=== PATIENT | female | born 1985 ===

== ENCOUNTER 2023-02-20 06:37 | Inpatient (IN) | payer OTHER ==
[~2023-02-20] VITALS: Ht 175.3 cm; Wt 2.7 kg
[2023-02-20] MEDS ORDERED: PRENATAL TABLE1 EAC4 PO (08:30)
[2023-02-20] MEDS ORDERED: IRON325 MG PO (08:31)
[2023-02-20 09:02] LABS: PH,URINE 6.5 (5.0-8.0); URINE APPEARANCE Cloudy; URINE BILIRRUBIN Negative (NEGATIVE); URINE BLOOD Negative; URINE COLOR Yellow; URINE GLUCOSE Negative (NEGATIVE); URINE LEUKOCYTE Moderate; URINE NITRATE Negative; URINE PROTEIN Trace (NEGATIVE)
[2023-02-20 09:03] LABS: HEMATOCRIT 32.7 % (36.0-45.00); HEMOGLOBIN 10.8 g/dL (12.0-15.00); MEAN CELL VOLUME 78.7 fL (80.00-100.00); MEAN CORPUSCULAR HGB CONC 33.1 g/dl (32.0-36.0); PLATELET COUNT 344 K/uL (150-450); RED BLOOD COUNT 4.15 M/uL (4.00-6.00); RED CELL DISTRIBUTION WIDTH 17.8 % (11.5-14.5)
[2023-02-20 09:05] LABS: URINE BACTERIA 6357.7 uL (0.0-1933); URINE EPITHELIAL CELLS 127.8 uL (0.0-38.8); URINE RBC 2.2 uL (0.0-20.8); URINE WBC 131.7 uL (0.0-23.2)
[2023-02-20 09:34] LABS: INR 0.94; PARTIAL THROMBOPLASTIN TIME 25.9 SECONDS (22.0-34.0); PROTHROMBIN TIME 9.9 SECONDS (9.0-11.5)
[2023-02-20 09:44] LABS: ALBUMIN 2.8 gm/dL (3.4-5.0); BILIRUBIN TOTAL 0.84 mg/dL (0.3-1.2); CALCIUM 8.9 mg/dL (8.5-10.1); CREATININE SERUM 0.54 mg/dL (0.55-1.02); GFR 127.03; GLOBULINA 4.2 G/DL (2.4-3.5); POTASSIUM 4.07 mEq/L (3.5-5.1)
[2023-02-20 11:00] LABS: URINE CRYSTALS FEW /HPF
[2023-02-21 06:39] LABS: HEMATOCRIT 30.5 % (36.0-45.00); MEAN CELL VOLUME 78.3 fL (80.00-100.00); MEAN CORPUSCULAR HEMOGLOBIN 25.6 pg (27.00-32.0); MEAN CORPUSCULAR HGB CONC 32.7 g/dl (32.0-36.0); PLATELET COUNT 309 K/uL (150-450); RED CELL DISTRIBUTION WIDTH 17.7 % (11.5-14.5)
== END 2023-02-23 15:57 | disposition home or self-care (01) | DRG 785 ==
LOC: LDR 06:37 → OB/GYN 21:39 → LDR 21:40 → OB/GYN 02-21 01:14
PROVIDERS: ADMIT Student in an Organized Health Care Education/Training Program; ATTEND Student in an Organized Health Care Education/Training Program
PROC: 0UB70ZZ Excision of Bilateral Fallopian Tubes, Open Approach (ICD-10-PCS; 2023-02-20)
PROC: 4A1HXCZ Monitoring of Products of Conception, Cardiac Rate, External Approach (ICD-10-PCS; 2023-02-20)
PROC: 3E0P7VZ Introduction of Hormone into Female Reproductive, Via Natural or Artificial Opening (ICD-10-PCS; 2023-02-20)
PROC: 10D00Z1 Extraction of Products of Conception, Low, Open Approach (ICD-10-PCS; principal; 2023-02-21)
PROC: 3E033VJ Introduction of Other Hormone into Peripheral Vein, Percutaneous Approach (ICD-10-PCS; 2023-02-21)
DX: O62.1 Secondary uterine inertia (principal); Z3A.39 39 weeks gestation of pregnancy; Z37.0 Single live birth; Z20.822 Contact with and (suspected) exposure to COVID-19; Z30.2 Encounter for sterilization